=== PATIENT | female | born 1990 | race Hispanic/Latino ===

== ENCOUNTER 2021-01-07 19:39 | Emergency (ER) | payer BC, OTHER ==
[2021-01-07] MEDS ORDERED: Ondansetron ODT 4 MG TAB ONE (20:17)
[2021-01-08 01:44] LABS: SARS-CoV-2 PCR by NAA DETECTED (NotDetected)
== END 2021-01-07 20:22 | disposition home or self-care (01) ==
LOC: BURERS 19:39
DX: U07.1 COVID-19 (principal); R00.0 Tachycardia, unspecified; Z79.899 Other long term (current) drug therapy
CPT/HCPCS: 99283; Q0162; U0003; U0005

== ENCOUNTER 2021-01-10 11:50 | Emergency (ER) | payer OTHER ==
[2021-01-10] MEDS ORDERED: cefTRIAXone\\ROCEPHIN 1 GM VIAL ONE (13:04)
[2021-01-10 13:12] LABS: Band 2 % (5-11); Hemoglobin 14.6 g/dL (12.0-16.0); Lymphocytes 34 % (21-51); MDiff Complete? YES; Mean Corpuscular HGB CONC 32.8 g/dL (32.0-36.0); Mean Corpuscular Hemoglobin 30.5 pg (27.0-31.0); Mean Platelet Volume 10.8 fL (7.4-10.4); Monocytes 3 % (0-10); Neutrophil 61 % (42-75); Platelet Count 183 thou/uL (130-400); RBC Distribution Width 12.5 % (11.5-14.5); Red Blood Cell (RBC) Count 4.78 mill/uL (4.20-5.40); White Blood Cell (WBC) Count 5.8 thou/uL (4.8-10.8)
[2021-01-10 13:24] LABS: ALT (SGPT) 83 U/L (8-55); AST (SGOT) 42 U/L (5-34); Albumin 4.2 g/dL (3.5-5.0); Alkaline Phosphatase 76 U/L (40-110); Anion Gap 15 mmol/L (10-20); BUN (Urea Nitrogen) 8 mg/dL (7.0-18.7); Bilirubin, Total 0.4 mg/dL (0.2-1.2); Calc. Creatinine Clearance 0 mL/min (70-130); Carbon Dioxide 21 mmol/L (22-29); Chloride 106 mmol/L (98-107); Globulin 3.7 g/dL (2.4-3.5); Glucose 109 mg/dL (70-105); Potassium 3.8 mmol/L (3.5-5.1); Protein, Total 7.9 g/dL (6.0-8.3); Sodium 138 mmol/L (136-145)
[2021-01-10 13:30] LABS: Calcium 9.2 mg/dL (7.8-10.44)
[2021-01-10] MEDS ORDERED: Dexamethasone 10 MG/ML VIAL ONE (14:33)
[2021-01-10] MEDS ORDERED: Acetaminophen 500 MG TAB ONE (14:48)
== END 2021-01-10 14:42 | disposition home or self-care (01) ==
LOC: BURERS 11:50
DX: U07.1 COVID-19 (principal)
CPT/HCPCS: 36415; 71045; 80053; 83605; 84484; 85025; 87040; 93005; 94760; 96365; 96375; J0696; J1100